=== PATIENT | female | born 1985 | race Caucasian/White ===

== ENCOUNTER 2021-02-21 05:17 | Emergency (ER) | payer BC, MEDICAID, SELFPAY ==
[~2021-02-21] VITALS: Ht 162.6 cm; Wt 81.6 kg
[2021-02-21 06:20] VITALS: BP_SYST 111
--- NOTE | 2021-02-21 07:10 | NUR ---
REPORT RECEIVED FROM CHARGE NURSE TRIXIE PT OUTSIDE IN TRIAGE TENT, PT COVID + WITH CHEST PAIN. SPEAKING FULL SENTENCES, NO DISTRESS
--- NOTE | 2021-02-21 07:46 | NUR ---
DR SCHWARZ OUT TO TRIAGE TENT TO EVALUATE PT.
--- NOTE | 2021-02-21 08:11 | NUR ---
XRAYS TAKEN OUT IN TRIAGE TENT
[2021-02-21] MEDS ORDERED: IBUP-1969 PO (08:58)
[2021-02-21] MEDS ORDERED: ALBU8.5H8 INH (08:58)
--- NOTE | 2021-02-21 09:40 | NUR ---
DR SCHWARZ OUT TO SPEAK WITH PT.
--- NOTE | 2021-02-21 09:56 | NUR ---
Note undone in EDM - 02/21/21 at 1000 by CONCHIS Patient given written and verbal discharge instructions and verbalizes understanding. ER discussed with patient the results and treatment provided. Patient in stable condition. ID arm band removed Rx of IBUPROFEN, PREDNISONE given. Patient educated on pain management and to follow up with PMD. Pain Scale 0/10. Opportunity for questions provided and answered. Medication side effect fact sheet provided.
--- NOTE | 2021-02-21 10:01 | NUR ---
Patient given written and verbal discharge instructions and verbalizes understanding. ER MD discussed with patient the results and treatment provided. Patient in stable condition. ID arm band removed. Rx of ALBUTEROL, IBUPROFEN given. Patient educated on pain management and to follow up with PMD. Pain Scale 0/10. Opportunity for questions provided and answered. Medication side effect fact sheet provided.
== END 2021-02-21 10:01 | disposition home or self-care (01) ==
LOC: SED 05:17
DX: U07.1 COVID-19 (principal); Z88.2 Allergy status to sulfonamides
CPT/HCPCS: 71045; 99283

== ENCOUNTER 2022-05-13 18:46 | Emergency (ER) | payer BC, MEDICAID, OTHER ==
[~2022-05-13] VITALS: Ht 162.6 cm; Wt 81.6 kg
[~2022-05-13 18:46] MED LIST: ALBU8.5H8 INH; IBUP-1969 PO
[2022-05-13 19:31] VITALS: BP_SYST 116
[2022-05-13 21:40] VITALS: BP_SYST 116
== END 2022-05-13 21:40 | disposition home or self-care (01) ==
LOC: SED 18:46
DX: R05.9 Cough, unspecified (principal); R06.02 Shortness of breath; Z88.2 Allergy status to sulfonamides; Z79.899 Other long term (current) drug therapy
CPT/HCPCS: 71045; 99283